=== PATIENT | male | born 1975 | race Caucasian/White ===

== ENCOUNTER 2018-05-29 09:48 | Emergency (ER) | payer OTHER ==
[2018-05-29 09:54] VITALS: BP 164/88; PULSE 82; RESP 18; TEMP 97.6
[2018-05-29 10:06] VITALS: O2SAT 98
[2018-05-29] MEDS ORDERED: PROPARACAINE/FLUORESCEIN SOD 100 DROP/5 ML BOTTLE OU STA (10:07)
[2018-05-29] MEDS ORDERED: Fluorescein 1 mg Ophthalmic Strip OU ONE (10:30)
--- NOTE | 2018-05-29 11:12 | ED PDOC ---
HPI: Eye Injury/Pain Time Seen by Provider: 05/29/18 10:06 Chief Complaint (Nursing): Eye Problem Chief Complaint (Provider): Eye Problem History Per: Patient History/Exam Limitations: no limitations Associated Symptoms: Pain. denies: Decreased Vision, Swelling Additional Complaint(s): Victorino Gale is a 42 year old male with no past medical history, who presents to the emergency department complaining of a left eye pain. Patient states that something flew into his eye while he was cooking on the grill. He states he has some pain with a bit of tearing but no visual changes nor any swelling or redness. PMD: no provider Past Medical History Reviewed: Historical Data, Nursing Documentation, Vital Signs Vital Signs: Last Vital Signs Temp 97.6 F 05/29/18 09:54 Pulse 82 05/29/18 09:54 Resp 18 05/29/18 09:54 BP 164/88 H 05/29/18 09:54 Pulse Ox 98 05/29/18 10:02 - Medical History PMH: No Chronic Diseases - Surgical History Surgical History: No Surg Hx - Family History Family History: States: Unknown Family Hx - Home Medications Home Medications: Ambulatory Orders Medication Instructions Recorded Ofloxacin Ophth 0.3% [Ocuflox 1 drop OS BID #1 bottle 05/29/18 Ophth 0.3%] - Allergies Allergies/Adverse Reactions: Allergies Allergy/AdvReac Type Severity Reaction Status Date / Time No Known Allergies Allergy Verified 05/29/18 10:03 Review of Systems ROS Statement: Except As Marked, All Systems Reviewed And Found Negative Eyes: Positive for: Pain (left eye ). Negative for: Vision Change, Conjunctivae Inflammation Physical Exam - Reviewed Nursing Documentation Reviewed: Yes Vital Signs Reviewed: Yes - Physical Exam Appears: Positive for: Non-toxic, No Acute Distress Head Exam: Positive for: ATRAUMATIC, NORMOCEPHALIC Eye Exam: Positive for: Other (Fluorescein stain on area with mild increased uptake on the lateral aspect of left eye consistent with conjunctivitis; no obvious foreign body) ENT: Positive for: Normal ENT Inspection Neck: Positive for: Normal, Painless ROM, Supple Respiratory: Negative for: Respiratory Distress - ECG O2 Sat by Pulse Oximetry: 98 (RA) Pulse Ox Interpretation: Normal Medical Decision Making Medical Decision Making: Time: 1030 Impression: eye pain --Rule out foreign body and corneal abrasion Plan: --Fluorescein 1 mg OU once 1050 On fluorescein stain: an area of mild increased uptake on the lateral aspect of left eye consistent with conjunctivitis. No obvious foreign body. Will discharge with instructions to follow up with eye doctor. Scribe Attestation: Documented by Joseph Joseph, acting as a scribe for Constanza Colbert MD. Provider Scribe Attestation: All medical record entries made by the Scribe were at my direction and personally dictated by me. I have reviewed the chart and agree that the record accurately reflects my personal performance of the history, physical exam, medical decision making, and the department course for this patient. I have also personally directed, reviewed, and agree with the discharge instructions and disposition. Disposition - Clinical Impression Clinical Impression: Conjunctivitis - Disposition Referrals: Brayden Mead MD [Staff Provider] - Disposition Time: 10:50 Condition: STABLE Prescriptions: Ofloxacin Ophth 0.3% [Ocuflox Ophth 0.3%] 1 drop OS BID #1 bottle Instructions: How to Use Eye Drops Forms: [employer] (Hungarian), [facility] School/Work Excuse
== END 2018-05-29 11:22 | disposition home or self-care (01) ==
LOC: H.ER 09:48
DX: H10.9 Unspecified conjunctivitis (principal)